=== PATIENT | male | born 1955 | race Caucasian/White ===

== ENCOUNTER 2021-11-07 15:49 | Inpatient (IN) | payer MEDICARE, OTHER ==
[~2021-11-07] VITALS: Ht 170.2 cm; Wt 87.1 kg
[2021-11-07] MEDS ORDERED: LISI10TA29 PO (16:19)
[2021-11-07] MEDS ORDERED: DUTA0.5C PO (16:19)
[2021-11-07] MEDS ORDERED: ASCO500P18 PO (16:19)
[2021-11-07] MEDS ORDERED: ATOR20TA PO (16:19)
[2021-11-07] MEDS ORDERED: RISP2TAB85 PO (16:19)
[2021-11-07] MEDS ORDERED: OXYB5TAB16 PO (16:19)
[2021-11-07] MEDS ORDERED: TAMS-3 PO (16:19)
[2021-11-07 16:45] LABS: CREATININE 1.5 mg/dL (0.6-1.3)
[2021-11-07 16:46] LABS: HEMATOCRIT 37.9 % (36.7-47.1); MEAN CORPUSCULAR HEMOGLOBIN 30.2 uug (23.8-33.4); MEAN CORPUSCULAR VOLUME 90.9 fL (73.0-96.2); PLATELET COUNT (AUTO) 108 K/uL (152-348)
[2021-11-07 16:55] LABS: BILIRUBIN,DIRECT 0.2 mg/dL (0.0-0.2); BILIRUBIN,TOTAL 0.6 mg/dL (0.2-1.0)
[2021-11-07] MEDS ORDERED: IV NORMAL SALINE 1000 ML BAG IV ONE (17:15)
--- NOTE | 2021-11-07 18:16 | NUR ---
CALLED [facility], ETA 30 MINUTES.
[2021-11-07 18:34] LABS: *BILIRUBIN,URIN NEGATIVE (NEGATIVE); *BLOOD, URINE 2+ (NEGATIVE); *CLARITY,URINE SLIGHTLY CLOUDY (CLEAR); *COLOR,URINE YELLOW (YELLOW); *KETONES,URINE NEGATIVE (NEGATIVE); *UROBILINOGEN,URINE 0.2 E.U./dl (NORMAL); LEUKOCYTE ESTERASE ,URINE 2+ (NEGATIVE); NITRITE, URINE POSITIVE (NEGATIVE); PH,URINE 5.5 (5.0-8.0); UGLUCOSE NEGATIVE (NEGATIVE)
--- NOTE | 2021-11-07 18:36 | NUR ---
PT KEEP WALKING AROUND THE ER WITH STABLE GAIT. PT VERBALIZES THAT HE WANTS TO GO HOME.
--- NOTE | 2021-11-07 19:04 | NUR ---
DR. MEJIA IN ER, ADMITTING THE PT. CALLED [facility] AND CANCELLED THE AMBULANCE.
--- NOTE | 2021-11-07 19:11 | NUR ---
Dr. Friedman here pt will be admitted to med surg unit for UTI.
[2021-11-07] MEDS ORDERED: CEFTRIAXONE 1 G in IV DEXTROSE 5% 50 ML IV ONE (19:15)
[2021-11-07] MEDS ORDERED: CEFTRIAXONE /D5W 50ML IVPB **ER PYXIS IV ONE (19:52)
[2021-11-07 20:01] LABS: BACTERIA,URINE MANY /HPF (NONE SEEN); SQUAMOUS EPITHELIAL CELL,UR MODERATE /HPF (NONE SEEN); WBC,URINE 50-80 /HPF (0-3)
--- NOTE | 2021-11-07 21:57 | NUR ---
report given to Deja RN pt to go to room 307
[2021-11-07] MEDS ORDERED: MORPHINE SULFATE 2 MG/1 ML DISP.SYRIN IV PRN (22:00)
[2021-11-07] MEDS: IV 1/2NS 1000 ML 1,000 ML IV PRN (22:48)
--- NOTE | 2021-11-07 22:51 | NUR ---
pt transported to room 307 RN Deja at bedside to accept pt.
[2021-11-07 23:00] VITALS: BP 126/80
[2021-11-07] MEDS: ATORVASTATIN 20 MG TABLET PO SCH (23:00)
[2021-11-07] MEDS: TAMSULOSIN HCL 0.4 MG CAP.SR.24H PO SCH (23:00)
--- NOTE | 2021-11-07 23:45 | NUR ---
Admitted pt from ER via [facility] accompanied by KAELA Saucedo. He is alert and oriented x2-3, does not know why he was admitted. Admission process observed, skin intact, belongings list filled up. Denies pain and discomfort at this time. IV line on L FA G#20 patent and intact, started on / NS 1L running at 70 ml/hr. All needs attended. Call light placed within reach. Bed alarm on. Frequent visual checks done. Will continue to monitor.
[2021-11-08] MEDS: ACETAMINOPHEN 325 MG TABLET PO PRN ×2 (02:10→23:06)
[2021-11-08 04:00] VITALS: BP 130/74
[2021-11-08] MEDS: PANTOPRAZOLE SODIUM 40 MG TABLET.DR PO SCH (06:04)
--- NOTE | 2021-11-08 06:16 | NUR ---
Pt slept intermittently throughout the night with episodes of trying to get out of bed, redirected and follows instructions but would try to get up again. Bed alarm on, safety precautions observed. Call light placed within reach. Frequent visual checks done.
[2021-11-08 06:33] LABS: HEMATOCRIT 35.2 % (36.7-47.1); MEAN CORPUSCULAR HEMOGLOBIN 30.9 uug (23.8-33.4); MEAN CORPUSCULAR VOLUME 90.9 fL (73.0-96.2); PLATELET COUNT (AUTO) 87 K/uL (152-348)
[2021-11-08 06:41] LABS: NEUTROPHILS % (MANUAL) 0 % (42-75)
[2021-11-08 08:01] LABS: BILIRUBIN,TOTAL 0.5 mg/dL (0.2-1.0); CREATININE 1.4 mg/dL (0.6-1.3); MAGNESIUM 1.8 mg/dL (1.8-2.4); PHOSPHOROUS 3.9 mg/dL (2.5-4.9); TOTAL PROTEIN, SERUM 6.3 g/dL (6.4-8.2)
[2021-11-08 08:27] LABS: THYROID STIMULATING HORMONE 3.263 mIU/mL (0.358-3.740)
[2021-11-08] MEDS: OXYBUTYNIN CHLORIDE 5 MG TABLET PO SCH ×2 (10:56→17:25)
[2021-11-08] MEDS: ASCORBIC ACID 500 MG TABLET PO SCH (10:56)
[2021-11-08] MEDS: DUTASTERIDE 0.5 MG CAPSULE PO SCH (10:56)
[2021-11-08] MEDS: risperiDONE 2 MG TABLET PO SCH ×2 (10:57→17:25)
[2021-11-08] MEDS: LISINOPRIL 10 MG TABLET PO SCH (11:13)
[2021-11-08 12:00] VITALS: BP 140/74
[2021-11-08] MEDS ORDERED: FAMO20TA8 PO (15:36)
[2021-11-08] MEDS ORDERED: FLEC50TA2 PO (15:38)
[2021-11-08] MEDS ORDERED: DIVA125C2 PO (15:42)
[2021-11-08 16:00] VITALS: BP 129/67
--- NOTE | 2021-11-08 16:00 | NUR ---
Pt is a/ox 2, continues to attempt getting out of bed. After multiple attempts of redirecting patient, placed him in yayo chair to avoid falls. Pt was compliant. He worked with physical therapy and walked a few steps with walker but his gait is unsteady. Pt is on room air. No complaint of pain or acute distress. Comfort measure provided, call light within reach. Will continue to monitor.
[2021-11-08] MEDS: IV 1/2NS 1000 ML 1,000 ML IV PRN (19:51)
[2021-11-08 20:00] VITALS: BP 104/68
[2021-11-08] MEDS: ATORVASTATIN 20 MG TABLET PO SCH (20:01)
[2021-11-08] MEDS: TAMSULOSIN HCL 0.4 MG CAP.SR.24H PO SCH (20:01)
[2021-11-08] MEDS: CEFTRIAXONE 1 G in IV DEXTROSE 5% 50 ML IV SCH (20:01)
[2021-11-08] MEDS: DOCUSATE SODIUM 100 MG CAPSULE PO SCH (20:02)
[2021-11-09 06:18] LABS: HEMATOCRIT 37.3 % (36.7-47.1); MEAN CORPUSCULAR HEMOGLOBIN 30.3 uug (23.8-33.4); MEAN CORPUSCULAR VOLUME 91.2 fL (73.0-96.2); PLATELET COUNT (AUTO) 98 K/uL (152-348)
[2021-11-09 06:27] LABS: CREATININE 1.2 mg/dL (0.6-1.3); MAGNESIUM 1.9 mg/dL (1.8-2.4); PHOSPHOROUS 4.1 mg/dL (2.5-4.9); POTASSIUM 4.3 mmol/L (3.5-5.1)
[2021-11-09 06:42] VITALS: BP 130/80
[2021-11-09] MEDS: PANTOPRAZOLE SODIUM 40 MG TABLET.DR PO SCH (06:44)
[2021-11-09] MEDS: DUTASTERIDE 0.5 MG CAPSULE PO SCH (08:41)
[2021-11-09] MEDS: ASCORBIC ACID 500 MG TABLET PO SCH (08:41)
[2021-11-09] MEDS: risperiDONE 2 MG TABLET PO SCH ×2 (08:41→16:55)
[2021-11-09] MEDS: OXYBUTYNIN CHLORIDE 5 MG TABLET PO SCH ×2 (08:41→16:55)
[2021-11-09] MEDS: LISINOPRIL 10 MG TABLET PO SCH (08:42)
--- NOTE | 2021-11-09 10:18 | NUR ---
IV dislodge Dr. lindo aware, with ok to leave IV out patient to be discharged today.
--- NOTE | 2021-11-09 11:00 | NUR ---
RECEIVED REPORT ON PT, RN LEFT HOME. PT IN BED RESTING, NO SIGNS OF RESP DISTRESS, NO REPORTS OF PAIN, CALL LIGHT WITHIN REACH, BED LOW AND LOCKED. POSSIBLE DISCHARGE FOR TODAY BACK TO SNF PER MD, WILL FOLLOW UP. PT A/OX2, ON ROOM AIR, AMBULATORY WITH PT, ON CARDIAC DIET, WILL CONTINUE TO MONITOR.
[2021-11-09 11:36] VITALS: BP 127/74
[2021-11-09 15:12] VITALS: BP 127/69
[2021-11-09] MEDS ORDERED: ACID1TAB4 PO (16:18)
[2021-11-09] MEDS ORDERED: CEFT1PIG2 IV (16:18)
[2021-11-09] MEDS ORDERED: DIVA125T2 PO (16:18)
[2021-11-09] MEDS ORDERED: MULT-594 PO (16:18)
[2021-11-09] MEDS ORDERED: TAMS-3 PO (16:18)
[2021-11-09] MEDS ORDERED: ACET325T53 PO (16:18)
[2021-11-09] MEDS ORDERED: FAMO-132 PO (16:18)
--- NOTE | 2021-11-09 17:59 | NUR ---
DISCHARGE ORDERS IN FOR PT, PER CM TP WILL DISCHARGE TOMORROW 11/10. PENDING TRANSPORTATION.
--- NOTE | 2021-11-09 19:25 | NUR ---
Received patient lying in bed. AAOX2. Reoriented patient to date and current president. Able to make needs known. No IV access noted. Noted to be discharged tomorrow. No acute distress noted at this time. Safety precautions initiated. Will continue to monitor.
[2021-11-09 19:47] VITALS: BP 131/79
[2021-11-09] MEDS: TAMSULOSIN HCL 0.4 MG CAP.SR.24H PO SCH (20:03)
[2021-11-09] MEDS: DOCUSATE SODIUM 100 MG CAPSULE PO SCH (20:03)
[2021-11-09] MEDS: CEFTRIAXONE 1 G in IV DEXTROSE 5% 50 ML IV SCH (21:02)
--- NOTE | 2021-11-09 21:35 | NUR ---
Informed Dr. Friedman, pt has not yet been discharged d/t to transportation issues.
[2021-11-10] MEDS: IV 1/2NS 1000 ML 1,000 ML IV PRN (00:48)
--- NOTE | 2021-11-10 02:00 | NUR ---
Patient removed IV access. Will reattempt to reinsert IV.
--- NOTE | 2021-11-10 02:54 | NUR ---
Reinsert new IV access, at R fore arm, gauge 22, wrapped with bandage.
[2021-11-10 04:42] VITALS: BP 124/76
[2021-11-10] MEDS: PANTOPRAZOLE SODIUM 40 MG TABLET.DR PO SCH (06:17)
--- NOTE | 2021-11-10 06:26 | NUR ---
Patient slept poorly last night, with episodes of confusion and non-compliance with nursing interventions. No acute distress noted at this time. IVF infusing well. Compliant with medication regimen. Possible D/C today. Safety precautions maintained. Will endorse to day shift.
[2021-11-10] MEDS: OXYBUTYNIN CHLORIDE 5 MG TABLET PO SCH (08:11)
[2021-11-10] MEDS: risperiDONE 2 MG TABLET PO SCH (08:11)
[2021-11-10] MEDS: DUTASTERIDE 0.5 MG CAPSULE PO SCH (08:11)
[2021-11-10] MEDS: ASCORBIC ACID 500 MG TABLET PO SCH (08:11)
[2021-11-10 08:15] VITALS: BP 133/75
[2021-11-10] MEDS: LISINOPRIL 10 MG TABLET PO SCH (08:15)
--- NOTE | 2021-11-10 11:40 | NUR ---
pt left unit on [facility] accompanied by double cut sawyer. Pt is calm and cooperative, able to verbalize some needs. Denies pain or discomfort. Left with all noted belongings and paperwork. Pt is stable. In no acute distress
== END 2021-11-10 11:42 | DRG 689 ==
LOC: ER 15:54 → MEDSURG3 22:02 → TELE3 23:27 → MEDSURG3 11-08 07:30
PROVIDERS: ADMIT Internal Medicine; ATTEND Internal Medicine
DX: N13.6 Pyonephrosis (principal); G92.8 Other toxic encephalopathy; K76.6 Portal hypertension; N13.8 Other obstructive and reflux uropathy; N17.0 Acute kidney failure with tubular necrosis; N21.0 Calculus in bladder; Z20.822 Contact with and (suspected) exposure to COVID-19; E86.0 Dehydration; E78.5 Hyperlipidemia, unspecified; F17.210 Nicotine dependence, cigarettes, uncomplicated; I10 Essential (primary) hypertension; R62.7 Adult failure to thrive; N32.81 Overactive bladder; N26.1 Atrophy of kidney (terminal); Z86.73 Personal history of transient ischemic attack (TIA), and cerebral infarction without residual deficits; K21.9 Gastro-esophageal reflux disease without esophagitis; F01.50 Vascular dementia, unspecified severity, without behavioral disturbance, psychotic disturbance, mood disturbance, and anxiety; K74.60 Unspecified cirrhosis of liver; K40.90 Unilateral inguinal hernia, without obstruction or gangrene, not specified as recurrent; N40.1 Benign prostatic hyperplasia with lower urinary tract symptoms; B96.20 Unspecified Escherichia coli [E. coli] as the cause of diseases classified elsewhere
CPT/HCPCS: 36415; 70030-TC; 70450; 71045; 83735; 84100; 84153; 84443; 85025; 85610; 87077; 87086; 93005; 97161; G0378; J0696; J3490; J7030; J7040; J7060